=== PATIENT | male | born 1990 | race Caucasian/White ===

== ENCOUNTER 2017-03-22 21:34 | Emergency (ER) | payer SELFPAY ==
[~2017-03-22] VITALS: Ht 177.8 cm; Wt 95.3 kg
[2017-03-22 21:50] VITALS: BP 160/93
--- NOTE | 2017-03-22 21:55 | PHYS DOC ---
Adult General Chief Complaint Chief Complaint: ALLERGIC REACTION HPI HPI Patient is a 26 year old male presents to the emergency department with complaints of allergic reaction. Patient states approximately 45 minutes prior to arrival he drank a beer he flavored juice and within 5 minutes beginning to have facial swelling. Patient states he has sensitivity to multiple "alcoholic" beverages. He states he is allergic to lemon. He denies short of breath, cough. He states on the way to the emergency department they picked up a bottle of "baby Benadryl" and he drank some format, not noting much he drank. Review of Systems Review of Systems Constitutional: Denies fever or chills [] Eyes: Denies change in visual acuity, redness, or eye pain, facial swelling HENT: Denies nasal congestion or sore throat, Respiratory: Denies cough or shortness of breath [] Cardiovascular: No additional information not addressed in HPI [] GI: Denies abdominal pain, nausea, vomiting, bloody stools or diarrhea [] : Denies dysuria or hematuria [] Musculoskeletal: Denies back pain or joint pain [] Integument: Denies rash or skin lesions [] Neurologic: Denies headache, focal weakness or sensory changes [] Endocrine: Denies polyuria or polydipsia [] All other systems were reviewed and found to be within normal limits, except as documented in this note. Current Medications Current Medications Current Medications Medications (Trade) Dose Ordered Sig/Pamela Start Time Stop Time Status Last Admin Dose Admin Diphenhydramine HCl (Benadryl) 50 mg 1X ONCE 03/22/17 22:00 03/22/17 22:04 DC 03/22/17 22:09 50 MG Methylprednisolone Sodium Succinate (SOLU-Medrol 125MG VIAL) 125 mg 1X ONCE 03/22/17 22:00 03/22/17 22:04 DC 03/22/17 22:08 125 MG Prednisone (Prednisone) 50 mg 1X ONCE 03/22/17 22:00 03/22/17 22:04 DC 03/22/17 22:08 50 MG Allergies Allergies Allergies Coded Allergies Type Severity Reaction Last Updated Verified No Known Drug Allergies 03/22/17 No Physical Exam Physical Exam Constitutional: Well developed, well nourished, no acute distress, non-toxic appearance. [] HENT: Normocephalic, atraumatic, bilateral external ears normal, oropharynx moist, uvula midline, no uvular edema no oral exudates, nose normal. [] Eyes: PERRLA, EOMI, conjunctiva normal, no discharge. Mild periorbital swelling[ ] Neck: Normal range of motion, no tenderness, supple lymphadenopathy, no stridor. [] Cardiovascular:Heart rate regular rhythm, no murmur [] Lungs & Thorax: Bilateral breath sounds clear to auscultation without wheezing[ ] Abdomen: Bowel sounds normal, soft, no tenderness, no masses, no pulsatile masses. [] Skin: Warm, dry, no erythema, vesicular rash in the right antecubital space. There are areas of healing noted within this rash. It is poison gaby. Back: No tenderness, no CVA tenderness. [] Extremities: No tenderness, no cyanosis, no clubbing, ROM intact, no edema. [] Neurologic: Alert and oriented X 3, normal motor function, normal sensory function, no focal deficits noted. [] Psychologic: Affect normal, judgement normal, mood normal. [] Current Patient Data Vital Signs Vital Signs Date Time Temp Pulse Resp B/P (MAP) Pulse Ox O2 Delivery O2 Flow Rate FiO2 03/22/17 21:50 97.3 98 20 99 Room Air 97.3 EKG EKG [] Radiology/Procedures Radiology/Procedures [] Course & Med Decision Making Course & Med Decision Making Pertinent Labs and Imaging studies reviewed. (See chart for details) []She received Benadryl 50 g IV, Solu-Medrol 125 mg IV and prednisone 50 mg by mouth. Patient has reduced facial swelling. His lungs remain clear auscultate throughout reports that he feels better. Dragon Disclaimer Dragon Disclaimer This electronic medical record was generated, in whole or in part, using a voice recognition dictation system. Departure Departure Impression: Primary Impression: Acute allergic reaction Disposition: 01 HOME, SELF-CARE Condition: STABLE Referrals: [facility] Patient Instructions: Allergic Rhinitis Additional Instructions: [id number]-fik-[id number] Benadryl, 2 tablets every 6 hours for 24 hours. Return to the emergency Department for new symptoms or concerns or worsening of current condition. Problem Qualifiers Primary Impression: Acute allergic reaction Encounter type: initial encounter Qualified Codes: T78.40XA - Allergy, unspecified, initial encounter EJNNIFER FARIA CASTINGS DRAFTER Mar 22, 2017 21:55
[2017-03-22] MEDS ORDERED: diphenhydrAMINE 50 MG/ML VIAL IVP ONE (22:00)
[2017-03-22] MEDS ORDERED: methylPREDNISolone SOD SUCC PF 125 MG/2 ML VIAL. IV ONE (22:00)
[2017-03-22] MEDS ORDERED: predniSONE 10 MG TABLET PO ONE (22:00)
== END 2017-03-22 22:55 | disposition home or self-care (01) ==
LOC: ER 21:34
DX: T78.49XA Other allergy, initial encounter (principal); X58.XXXA Exposure to other specified factors, initial encounter
CPT/HCPCS: 96374; 96375; 99284; J1200; J2930; J7512